=== PATIENT | female | born 1990 | race Caucasian/White ===

== ENCOUNTER → 2017-12-02 | Day surgery (SDC) | payer OTHER ==
[~2017-12-02] MED LIST: APREPITANT 40 MG CAP ONE; CENTTAB9 PO; IBUP600 PO; KETOROLAC TROMETHAMINE 30 MG/ML (IVP) VIAL ONE; LACTATED RINGER'S 1000 ML INJ 1,000 ML ONE; MEPERIDINE HCL 25 MG/ML VIAL ONE; METHYLERGONOVINE MALEATE 0.2 MG/ML VIAL ONE; MIDAZOLAM HCL 2 MG/2 ML VIAL ONE; ONDANSETRON HCL 4 MG/2 ML VIAL IV PUSH ONE; PROPOFOL 200 MG/20 ML AMP IV ONE; RANI150 PO; VALT500T PO; VITA200017 PO; ceFAZolin 1 GM PREMIX 50 ML ONE
--- NOTE | 2017-12-02 08:31 | MP ---
cc: Lars Jim MD DATE OF OPERATION: 12/02/2017 PREOPERATIVE DIAGNOSIS: Patient approximately 9 weeks gestation with missed . Maternal blood type O positive. PROCEDURE PERFORMED: Exam under anesthesia, dilatation and curettage with suction #8 curved tip was used. POSTOPERATIVE DIAGNOSIS: Patient approximately 9 weeks gestation with missed . Maternal blood type O positive. SURGEON: Lars Jim MD. ANESTHESIA: General LMA. ESTIMATED BLOOD LOSS: 50 mL. DRAINS: None. OPERATIVE FINDINGS: The patient had an anteverted uterus measuring about 11 weeks in size. No other specific abnormality was evident. INDICATIONS FOR PROCEDURE: The patient was followed for routine care, documented nonviable gestation at 9 weeks. The patient considered her options and elected for dilatation and curettage with suction. PROCEDURE: The patient was taken to the operating room. She received 2 grams of Ancef prophylactically. She underwent general anesthesia with LMA placement. She was carefully positioned in the dorsal lithotomy position using candy cane stirrups. She had sequential's placed on her lower extremities for VTE prophylaxis. She was prepped and draped. Time-out was conducted, agreed by all present in the room. Exam of the pelvis was noted above in the findings. Cervix is midline easily identified. A single-tooth tenaculum was used to secure it anteriorly and then a uterine sound was placed gently to measure the uterine length, which was 11 cm. The cervix was then dilated and then a #8 curved suction tip was used to evacuate the uterine contents. This was followed by use of a handheld curet and then a second pass with the suction curet. There was no perforation that occurred. Blood loss was minimal. At the completion of the case, the patient was stable. A full and final count was correct at the end of the case. Pathology specimen was sent in formalin labeled products of conception. Patient's maternal blood type is O positive. RhoGAM is not indicated. Lars Jim MD [facility] , 08:18 AM , 08:30 AM
== END | disposition home or self-care (01) ==
LOC: ESDC 06:25
PROVIDERS: ATTEND Obstetrics & Gynecology
DX: O02.1 Missed abortion (principal)
CPT/HCPCS: 01965; 59820; 88305; J0690; J2175; J2210; J2250; J2405; J3010; J7120; J8501; J1885